=== PATIENT | female | born 1970 | race Caucasian/White ===

== ENCOUNTER 2017-11-07 15:21 | Emergency (ER) | payer OTHER, MEDICAID ==
[2017-11-07 15:42] VITALS: BP 147/102
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
--- NOTE | 2017-11-08 10:06 | CR ---
Cervical spine: AP, lateral and odontoid views of the cervical spine were obtained. Comparison: No prior cervical spine exam. Mild disc space narrowing is noted at C5-C6. Minimal anterior osteophytes are noted at C5-C6 and C6-C7. Vertebral body heights are maintained. Prevertebral soft tissues are normal. No subluxation or fracture is seen. Minimal degenerative spurring is noted on the left side at C5-C6 within the uncovertebral joints. Impression: 1. Minimal degenerative change. 2. Nothing acute is appreciated on three-view cervical spine exam. Diagnostic code #2
== END 2017-11-07 16:33 | disposition home or self-care (01) ==
LOC: JD.ED 15:21
DX: S16.1XXA Strain of muscle, fascia and tendon at neck level, initial encounter (principal); Z88.2 Allergy status to sulfonamides; Z79.899 Other long term (current) drug therapy; V89.2XXA Person injured in unspecified motor-vehicle accident, traffic, initial encounter
CPT/HCPCS: 72040; 72040-26; 99283; 99284

== ENCOUNTER 2019-02-18 12:12 | Emergency (ER) | payer BC, MEDICAID, OTHER ==
[2019-02-18 12:25] VITALS: BP 146/104
--- NOTE | 2019-02-18 12:47 | EDM.PDOC ---
ED HPI GENERAL MEDICAL PROBLEM - General Chief Complaint: General Stated Complaint: DENTAL COMPLAINT Time Seen by Provider: 02/18/19 12:47 - History of Present Illness INITIAL COMMENTS - FREE TEXT/NARRATIVE: 48-year-old female comes emergency room with abdominal pain. This is been going on for several days. She's had a root canal on this tooth several years ago. Patient was seen by the dentist yesterday started on clindamycin 150 mg 4 times a day and gave her some [place] 01/27/25 that is not working. She sees one or 2 every 6 hours but has taken to only one time and started out at one every 6 hours. She's also use some ibuprofen. Right Tooth/Teeth Pain Score (Numeric/FACES): 10 - Related Data Allergies Allergy/AdvReac Type Severity Reaction Status Date / Time Sulfa (Sulfonamide Allergy Hives/rash Verified 02/18/19 12:22 Antibiotics) Home Meds: Home Meds Venlafaxine [Venlafaxine HCl ER] 150 mg PO DAILY 11/05/15 [History] Zolpidem Tartrate [Ambien Cr] 12.5 mg PO BEDTIME 11/05/15 [History] Clindamycin HCl [Cleocin] 150 mg PO QID 02/18/19 [History] Hydrocodone/Acetaminophen [Hydrocodon-Acetaminophen 5-325] 1 tab PO Q6H PRN [History] Hydrocodone/Acetaminophen [[place] 7.5-325 Tablet] 1 - 2 each PO Q6H PRN #10 tablet 02/18/19 [Rx] Ibuprofen 800 mg PO ASDIRECTED 02/18/19 [History] traMADol HCl [Tramadol HCl] 50 mg PO Q6H PRN 02/18/19 [History] Past Medical History - Past Health History Medical/Surgical History: Denies Medical/Surgical History Cardiovascular History: Reports: Heart Murmur Gastrointestinal History: Reports: Chronic Constipation, GERD, Irritable Bowel Syndrome Other Gastrointestinal History: abdominal pain, bloating, bowel incontinence 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: adnexal mass, densue breast tissue, intermenstrual bleeding, menorrhagia, breast enlargement Psychiatric History: Reports: Anxiety - Past Surgical History Female Surgical History: Reports: Section, D&C, Hysterectomy, Tubal Ligation Social & Family History - Family History Family Medical History: Noncontributory - Caffeine Use Caffeine Use: Reports: Coffee ED ROS GENERAL - Review of Systems Review Of Systems: See Below Constitutional: Reports: Chills HEENT: Reports: No Symptoms Respiratory: Reports: No Symptoms Cardiovascular: Reports: No Symptoms GI/Abdominal: Reports: No Symptoms : Reports: No Symptoms Neurological: Reports: No Symptoms ED EXAM, GENERAL - Physical Exam Exam: See Below Exam Limited By: No Limitations General Appearance: Alert, Mild Distress (From the pain) Eye Exam: Bilateral Eye: Normal Inspection Ears: Normal External Exam, Normal Canal, Hearing Grossly Normal, Normal TMs Nose: Normal Inspection, Normal Mucosa, No Blood Throat/Mouth: Normal Inspection, Normal Lips, Normal Gums, Normal Oropharynx, Normal Voice, No Airway Compromise, Other (Right lower molar second from the back has mild swelling around the area minimal erythema this is the one that had a root canal in the past) Head: Atraumatic, Normocephalic Neck: Normal Inspection, Supple. No: Lymphadenopathy (L), Lymphadenopathy (R) Respiratory/Chest: No Respiratory Distress, Lungs Clear, Normal Breath Sounds Cardiovascular: Regular Rate, Rhythm, No Edema, No Murmur Neurological: Alert, Oriented, Normal Cognition Course - Vital Signs Last Recorded V/S: Last Vital Signs Temp 36.7 C 02/18/19 12:22 Pulse 64 02/18/19 12:22 Resp 15 02/18/19 12:22 BP 146/104 H 02/18/19 12:22 Pulse Ox 98 02/18/19 12:22 - Orders/Labs/Meds Orders: Active Orders 24 hr Category Date Time Status cefTRIAXone [Rocephin] 1 gm Med 02/18/19 13:00 Active Lidocaine 1% [Xylocaine 1%] 2.1 ml IM Q24H Medication Orders Ceftriaxone Sodium 1 gm/ (Lidocaine HCl 2.1 ml) 0 gm IM Q24H SHAHRIAR Last Admin: 02/18/19 13:11 Dose: 1 inj Meds: Medications Generic Name Dose Route Start Last Admin Trade Name Freq PRN Reason Stop Dose Admin Ceftriaxone Sodium 1 gm/ 0 gm 02/18/19 13:00 02/18/19 13:11 Lidocaine HCl 2.1 ml IM 1 inj Q24H SHAHRIAR Administration Discontinued Medications Generic Name Dose Route Start Last Admin Trade Name Freq PRN Reason Stop Dose Admin Ketorolac Tromethamine 30 mg 02/18/19 12:57 02/18/19 13:11 Toradol IM 02/18/19 12:58 30 mg ONETIME ONE Administration - Re-Assessments/Exams Free Text/Narrative Re-Assessment/Exam: 02/18/19 13:03 We'll give the patient a shot of Rocephin IM as it may take the clindamycin 2-3 days to get the full effect. Will give IM Toradol to see if we get a little bit more comfortable anticipate discharging her with [place] 7.52 every 6 hours in the short-term until the antibiotics get with it. Departure - Departure Time of Disposition: 14:27 Disposition: Home, Self-Care 01 Clinical Impression: Pain, dental - Discharge Information Prescriptions: Hydrocodone/Acetaminophen [[place] 7.5-325 Tablet] 1 - 2 each PO Q6H PRN #10 tablet PRN Reason: Pain Referrals: Rhona Ocampo NP [Primary Care Provider] - Forms: ED Department Discharge Additional Instructions: Return to the emergency room with any questions problems or worsening symptoms. Take your medication as directed. Today you have been prescribed [place] a little stronger than what your given yesterday at the dentist take one or 2 every 6 hours as needed for pain usually these medications are not needed after the antibiotics get with it so hopefully he won't need to use it any more than 2 or 3 days and then ibuprofen for your discomfort hang onto your other prescription of the hydrocodone and you can use it as night if needed. Follow-up with the plan that your dentist laid out. - My Orders Last 24 Hours: My Active Orders 02/18/19 13:00 cefTRIAXone [Rocephin] 1 gm Lidocaine 1% [Xylocaine 1%] 2.1 ml IM Q24H - Assessment/Plan Last 24 Hours: My Active Orders 02/18/19 13:00 cefTRIAXone [Rocephin] 1 gm Lidocaine 1% [Xylocaine 1%] 2.1 ml IM Q24H
[2019-02-18] MEDS ORDERED: Ketorolac 30 MG/ML SDV IM ONE (12:57)
[2019-02-18] MEDS ORDERED: cefTRIAXone 1 GM, Lidocaine 1% 2.1 ML IM SCH ×2 (13:00)
== END 2019-02-18 14:40 | disposition home or self-care (01) ==
LOC: JD.ED 12:12
DX: K08.89 Other specified disorders of teeth and supporting structures (principal); F41.9 Anxiety disorder, unspecified; Z88.2 Allergy status to sulfonamides; Z79.899 Other long term (current) drug therapy; Z98.51 Tubal ligation status; Z90.710 Acquired absence of both cervix and uterus
CPT/HCPCS: 96372; 99282; J0696; J1885; J2001; 99283

== ENCOUNTER 2019-02-19 18:44 | Emergency (ER) | payer BC, OTHER ==
[2019-02-19 19:04] VITALS: BP 155/108
--- NOTE | 2019-02-19 19:09 | EDM.PDOC ---
ED HPI GENERAL MEDICAL PROBLEM - General Chief Complaint: ENT Problem Stated Complaint: tooth pain Time Seen by Provider: 02/19/19 19:09 - History of Present Illness INITIAL COMMENTS - FREE TEXT/NARRATIVE: 48-year-old female presents emergency room with worsening right facial infection Patient was seen here yesterday after being started on clindamycin 150 mg Wednesday by her dentist with a diagnosis of an infected root canal. The patient had a root canal several years ago and several days prior to Wednesday was having increased discomfort and pain she was evaluated Wednesday by the dentist started on clindamycin 150 mg every 6 hours. I saw the patient yesterday with continuing worsening symptoms gave her a shot of Rocephin 1 g and some Toradol she was doing better at the time of discharge also increased her hydrocodone from 01/27/25 to 7. 5 she has had continuing worsening pain despite this and worsening swelling. Right Lower Tooth/Teeth Pain Score (Numeric/FACES): 10 - Related Data Allergies Allergy/AdvReac Type Severity Reaction Status Date / Time Sulfa (Sulfonamide Allergy Hives/rash Verified 02/19/19 19:02 Antibiotics) Home Meds: Home Meds Venlafaxine [Venlafaxine HCl ER] 150 mg PO DAILY 11/05/15 [History] Zolpidem Tartrate [Ambien Cr] 12.5 mg PO BEDTIME 11/05/15 [History] Clindamycin HCl [Cleocin] 150 mg PO QID 02/18/19 [History] Hydrocodone/Acetaminophen [Hydrocodon-Acetaminophen 5-325] 1 tab PO Q6H PRN [History] Hydrocodone/Acetaminophen [[place] 7.5-325 Tablet] 1 - 2 each PO Q6H PRN #10 tablet 02/18/19 [Rx] Ibuprofen 800 mg PO ASDIRECTED 02/18/19 [History] traMADol HCl [Tramadol HCl] 50 mg PO Q6H PRN 02/18/19 [History] Past Medical History - Past Health History Medical/Surgical History: Denies Medical/Surgical History Cardiovascular History: Reports: Heart Murmur Gastrointestinal History: Reports: Chronic Constipation, GERD, Irritable Bowel Syndrome Other Gastrointestinal History: abdominal pain, bloating, bowel incontinence 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, densue breast tissue, intermenstrual bleeding, menorrhagia, breast enlargement Psychiatric History: Reports: Anxiety - Past Surgical History Female Surgical History: Reports: Section, D&C, Hysterectomy, Tubal Ligation Social & Family History - Family History Family Medical History: Noncontributory - Tobacco Use Smoking Status *Q: Never Smoker - Caffeine Use Caffeine Use: Reports: Coffee - Recreational Drug Use Recreational Drug Use: No ED ROS ENT - Review of Systems Review Of Systems: See Below Constitutional: Denies: Fever, Chills HEENT: Reports: Dental Pain Respiratory: Reports: No Symptoms Cardiovascular: Reports: No Symptoms GI/Abdominal: Reports: No Symptoms Neurological: Reports: No Symptoms ED EXAM, ENT - Physical Exam Exam: See Below Exam Limited By: No Limitations General Appearance: Alert, No Apparent Distress Ears: Normal External Exam, Normal Canal, Hearing Grossly Normal, Normal TMs Nose: Normal Inspection, Normal Mucousa, No Blood Mouth/Throat: Normal Oropharynx, Other (The second 2 rear right molar has some mild erythema and swelling around it and it is somewhat discolored. No other abnormalities noted) Head: Other (Increased swelling below her jaw on the right side significant change from yesterday) Neck: Normal Inspection, Supple, Full Range of Motion, Lymphadenopathy (R) ( Mild new from yesterday). No: Tender Lateral, Tender Midline Respiratory/Chest: No Respiratory Distress, Lungs Clear, Normal Breath Sounds Cardiovascular: Regular Rate, Rhythm, No Edema, No Murmur Course - Vital Signs Last Recorded V/S: Last Vital Signs Temp 36.8 C 02/19/19 19:02 Pulse 70 02/19/19 19:02 Resp 18 02/19/19 19:02 BP 155/108 H 02/19/19 19:02 Pulse Ox 98 02/19/19 19:02 - Orders/Labs/Meds Orders: Active Orders 24 hr Category Date Time Status Max Facial Sinus w Cont [CT] Stat Exams 02/19/19 19:29 Taken Labs: Laboratory Tests 02/19/19 02/19/19 Range/Units 19:35 19:35 WBC 11.30 H (3.98-10.04) K/mm3 RBC 4.53 (3.98-5.22) M/mm3 Hgb 14.4 D (11.2-15.7) gm/L Hct 43.5 (34.1-44.9) % MCV 96.0 H D (79.4-94.8) fl MCH 31.8 (25.6-32.2) pg MCHC 33.1 (32.2-35.5) g/dl RDW Std Deviation 47.4 H (36.4-46.3) fL Plt Count 316 (182-369) K/mm3 MPV 9.0 L (9.4-12.3) fl Neutrophils % (Manual) 76 H (40-60) % Band Neutrophils % 1 (0-10) % Lymphocytes % (Manual) 15 L (20-40) % Atypical Lymphs % 0 % Monocytes % (Manual) 4 (2-10) % Eosinophils % (Manual) 3 (0.7-5.8) % Basophils % (Manual) 1 (0.1-1.2) Platelet Estimate Adequate RBC Morph Comment Normal Sodium 139 (136-145) mEq/L Potassium 4.0 (3.5-5.1) mEq/L Chloride 103 (98-107) mEq/L Carbon Dioxide 28 (21-32) mEq/L Anion Gap 12.0 (5-15) BUN 14 (7-18) mg/dL Creatinine 1.1 H (0.55-1.02) mg/dL Est Cr Clr Drug Dosing 64.06 mL/min Estimated GFR (MDRD) 53 (>60) mL/min BUN/Creatinine Ratio 12.7 L (14-18) Glucose 81 (74-106) mg/dL Calcium 9.0 (8.5-10.1) mg/dL Meds: Medications Discontinued Medications Generic Name Dose Route Start Last Admin Trade Name Carlos PRN Reason Stop Dose Admin Fentanyl 100 mcg 02/19/19 19:25 02/19/19 19:45 Sublimaze IVPUSH 02/19/19 19:26 100 mcg ONETIME ONE Administration Ampicillin Sodium/Sulbactam 100 mls @ 200 mls/hr 02/19/19 19:25 02/19/19 19: 50 Sodium 3 gm/ Sodium Chloride IV 02/19/19 19:54 200 mls/hr ONETIME ONE Administration Iohexol 60 ml 02/19/19 19:56 02/19/19 20:16 Omnipaque-300 IVPUSH 02/19/19 19:57 60 ml ONETIME ONE Administration Oxycodone/Acetaminophen 1 tab 02/19/19 20:45 02/19/19 20:58 Percocet 325-5 Mg PO 02/19/19 20:46 1 tab ONETIME STA Administration Oxycodone/Acetaminophen 1 tab 02/19/19 22:09 Percocet 325-5 Mg PO 02/19/19 22:10 ONETIME ONE - Re-Assessments/Exams Free Text/Narrative Re-Assessment/Exam: 02/19/19 22:16 CT evaluation is negative for abscess she's got some soft tissue swelling and edema around the right side of the mandible but no abscess. Patient's abdominal little bit of improvement with a single Percocet but is the pain is coming back after the fentanyl is wearing off will add a second Percocet family would like to go home at this point we'll discharge on Percocet she also received Unasyn will change antibiotics to Augmentin 875 twice a day Departure - Departure Time of Disposition: 22:18 Disposition: DC/Tfer to [facility] 03 Clinical Impression: Pain, dental, Dental infection - Discharge Information Referrals: Rhona Ocampo NP [Primary Care Provider] - Additional Instructions: Return to emergency room if any questions problems worsening symptoms. Stop the clindamycin start the Augmentin take the first pill as soon as you get up in the morning and then 1 twice daily. Stop the hydrocodone. Flush the remaining hydrocodone down the toilet. Start the Percocet 1 or 2 every 4-[address] returning to work within 12 hours of using this medication. Avoid excessive ibuprofen 800 mg 3 times a day is the maximum dose or 600 mg 4 times a day. Take with food. Follow-up with the the dentist early this next week. - My Orders Last 24 Hours: My Active Orders 02/19/19 19:29 Max Facial Sinus w Cont [CT] Stat - Assessment/Plan Last 24 Hours: My Active Orders 02/19/19 19:29 Max Facial Sinus w Cont [CT] Stat
[2019-02-19] MEDS ORDERED: Ampicillin/Sulbactam Na 3 GM in Sodium Chloride 0.9% 100 ML IV ONE (19:25)
[2019-02-19] MEDS ORDERED: fentaNYL 100 MCG/2 ML SDV IVPUSH ONE (19:25)
[2019-02-19] MEDS ORDERED: Iohexol 647 MG/ML 100 ML Bottle IVPUSH ONE (19:56)
[2019-02-19] MEDS ORDERED: Acetaminophen/oxyCODONE 325-5 MG Tab PO STA (20:45)
[2019-02-19] MEDS ORDERED: Acetaminophen/oxyCODONE 325-5 MG Tab PO ONE (22:09)
--- NOTE | 2019-02-21 10:51 | CT ---
CT maxillofacial Technique: Multiple axial sections were obtained from below the mandible superiorly to the mid orbits. Intravenous contrast was utilized. Findings: Slightly prominent lymph nodes are seen on the right side adjacent to the mandible. Mild soft tissue swelling is seen around the right side of the mandible. No focal fluid collections of abscess are seen. No abnormal lucency is seen around any of the teeth. No fracture is identified. Mild degenerative change is seen within the cervical spine. Impression: 1. Slightly prominent lymph nodes around the right mandible with mild soft tissue swelling around the right mandible. Findings are suspicious for mild cellulitis. 2. No abscess is seen. 3. Other incidental findings. Diagnostic code #3 I agree with preliminary report from [facility], finalized on 02/19/19, 9:21 PM Central Time
== END 2019-02-19 22:36 ==
LOC: JD.ED 18:44
DX: K04.7 Periapical abscess without sinus (principal); K21.9 Gastro-esophageal reflux disease without esophagitis; F41.9 Anxiety disorder, unspecified; Z79.899 Other long term (current) drug therapy; Z88.2 Allergy status to sulfonamides
CPT/HCPCS: 36415; 70487; 80048; 85007; 85027; 96365; 96375; 99283; A9270; J0295; J3010; J7030; Q9967